=== PATIENT | female | born 1990 | race Caucasian/White ===

== ENCOUNTER 2017-02-23 09:17 | Observation (INO) | payer BC, OTHER ==
[2017-02-23] MEDS ORDERED: THROMBIN (BOVINE) 5,000 UNIT VIAL TP ONE (09:50)
[2017-02-23] MEDS ORDERED: BUPIVACAINE 0.25% 30 ML SDV ONE (09:50)
[2017-02-23] MEDS ORDERED: LR 1,000 ML IV ONE (11:54)
[2017-02-23] MEDS ORDERED: LIDOCAINE 1% 2 ML INJ ONE (12:03)
[2017-02-23] MEDS ORDERED: ceFAZolin 2 GM/SWFI 2 GM/20 ML SYR IVP ONE (12:26)
[2017-02-23] MEDS ORDERED: ALPRAZolam 0.5 MG TAB PO PRN (12:28)
--- NOTE | 2017-02-23 12:29 | PDHPUP ---
History & Physical Update H&P update statement: This history and physical update is based on an assessment of the patient which was completed after admission or registration (within 24 hours), but prior to the surgery/procedure. H&P update: H&P reviewed & patient examined, no change in patient's condition since H&P completed
[2017-02-23] MEDS ORDERED: LR 1,000 ML IV SCH (12:30)
[2017-02-23] MEDS ORDERED: ceFAZolin 2 GM/SWFI 20 ML SYR IVP ONE (12:33)
[2017-02-23 12:52] LABS: PLATELET COUNT 174 10^3/uL (150-400)
--- NOTE | 2017-02-23 12:52 | PDANEPAE ---
ANE History of Present Illness thyroidectomy ANE Past Medical History - Cardiovascular History Hx Hypertension: No Hx Arrhythmias: No Hx Chest Pain: No Hx Coronary Artery / Peripheral Vascular Disease: No Hx CHF / Valvular Disease: No Hx Palpitations: No Cardiovascular History Comment: HEART MURMUR - SINCE - Pulmonary History Hx COPD: No Hx Asthma/Reactive Airway Disease: No Hx Recent Upper Respiratory Infection: No Hx Oxygen in Use at Home: No Hx Sleep Apnea: No Sleep Apnea Screening Result - Last Documented: Negative - Neurologic History Hx Cerebrovascular Accident: No Hx Seizures: No Hx Dementia: No Neurologic History Comment: MIGRAINES IN PAST - Endocrine History Hx Diabetes: Yes Endocrine History Comment: THYROID NODULE - Renal History Hx Renal Disorders: No - Liver History Hx Hepatic Disorders: No - Neurological & Psychiatric Hx Hx Neurological and Psychiatric Disorders: Yes Neurological / Psychiatric History Comment: ANXIETY - Cancer History Hx Cancer: Yes Cancer History Comment: MELANOMA - Congenital Disorder History Hx Congenital Disorders: No - GI History Hx Gastrointestinal Disorders: Yes Gastrointestinal History Comment: GERD - Other Health History Other Health History: NEG - Chronic Pain History Chronic Pain: No - Surgical History Prior Surgeries: MELANOMA SKIN REMOVED. WISDOM TEETH ANE Review of Systems Review of systems is: negative Review of Systems: - Exercise capacity METS (RN): 4 METS ANE Patient History - Allergies Allergies/Adverse Reactions: Sulfa (Sulfonamide Antibiotics) Allergy (Verified 01/23/17 09:57) "makes me really sick" - Home Medications Home medications: home medication list seen and reviewed Home Medications: ALPRAZolam [Xanax 0.5 MG (*)] 0.5 mg PO DAILY PRN 01/23/17 [Last Taken 02/23/16 0.5] Cyanocobalamin [Vitamin B12 (*)] 1,000 mcg PO DAILY 01/23/17 [Last Taken Unknown ] Ibuprofen [Motrin (*)] 200 mg PO DAILY PRN 01/23/17 [Last Taken Unknown] Multivitamins [Multivitamin (*)] 1 each PO DAILY 01/23/17 [Last Taken Unknown] Perry-3 Fatty Acids [Fish Oil 1000 mg (*)] 1,000 mg PO DAILY 01/23/17 [Last Taken Unknown] - NPO status NPO Since - Liquids (Date): 02/23/17 NPO Since - Liquids (Time): 10:00 NPO Since - Solids (Date): 02/23/17 NPO Since - Solids (Time): 07:00 (light meal) - Anes Hx Anes Hx: no prior problems - Smoking Hx Smoking Status: Never smoked - Family Anes Hx Family Anes Hx: none Family Hx Anesthesia Complications: NEG ANE Labs/Vital Signs - Labs Result Diagrams: 02/23/17 12:26 - Vital Signs Blood Pressure: 133/72 Heart Rate: 67 Respiratory Rate: 14 O2 Sat (%): 97 Height: 167.64 cm Weight: 61.235 kg ANE Physical Exam - Airway Neck exam: FROM Mallampati Score: Class 1 - Pulmonary Pulmonary: no respiratory distress - Cardiovascular Cardiovascular: regular rate and rhythym - ASA Status ASA Status: II ANE Anesthesia Plan Anesthesia Plan: general endotracheal anesthesia
[2017-02-23] MEDS ORDERED: MIDAZOLAM 2 MG/2 ML VIAL IVP ONE (13:00)
[2017-02-23] MEDS ORDERED: MIDAZOLAM 2 MG/2 ML VIAL ONE (13:02)
[2017-02-23] MEDS ORDERED: LIDOCAINE 2% 100 MG/5 ML SYR ONE (13:12)
[2017-02-23] MEDS ORDERED: ROCURONIUM 50 MG/5 ML VIAL ONE (13:12)
[2017-02-23] MEDS ORDERED: PROPOFOL 200 MG/20 ML VIAL ONE (13:12)
[2017-02-23] MEDS ORDERED: DEXAMETHASONE 4 MG/ML VIAL ONE (13:12)
[2017-02-23] MEDS ORDERED: ONDANSETRON 4 MG/2 ML VIAL ONE ×2 (13:12→16:07)
[2017-02-23] MEDS ORDERED: fentaNYL 250 MCG/5 ML INJ ONE (13:12)
[2017-02-23] MEDS ORDERED: ACETAMINOPHEN 500 MG TAB PO PRN (14:21)
[2017-02-23] MEDS ORDERED: ALBUTEROL 3 ML DEYVIAL IH PRN (14:21)
[2017-02-23] MEDS ORDERED: NALOXONE HCL 0.4 MG/ML INJ IVP PRN (14:21)
[2017-02-23] MEDS ORDERED: DEXAMETHASONE 4 MG/ML VIAL IVP PRN (14:21)
[2017-02-23] MEDS ORDERED: MEPERIDINE 25 MG/ML SYR IVP PRN (14:21)
[2017-02-23] MEDS ORDERED: HYDROCODONE/APAP 5/325 TAB PO PRN (14:21)
[2017-02-23] MEDS ORDERED: OXYCODONE/APAP 5/325 TAB PO PRN (14:21)
[2017-02-23] MEDS ORDERED: ONDANSETRON 4 MG/2 ML VIAL IVP PRN ×2 (14:21→15:37)
--- NOTE | 2017-02-23 14:58 | POSTANESTH ---
Post Anesthetic Evaluation Cardiovascular Status: Normal, Stable, Similar to Pre-Op Cond Respiratory Status: Normal, Stable, Similar to Pre-op Cond. Level of Consciousness/Mental Status: Can Participate in Eval, Mildly Sleepy, Arousable Pain Control: Adequate, Prn Tx Ordered Nausea/Vomiting Control: Inadeq, Add Tx Reqired Complications Possibly Related to Anesthesia: None Noted
[2017-02-23] MEDS ORDERED: PROMETHAZINE HCL 25 MG/ML INJ ONE (15:36)
[2017-02-23] MEDS: PROMETHAZINE HCL 25 MG/ML INJ IVP PRN ×2 (15:37→15:47)
[2017-02-23] MEDS ORDERED: D5W 1/2 NS W/ 20 KCl/L 1,000 ML IV SCH (15:45)
[2017-02-23] MEDS ORDERED: fentaNYL 100 MCG/2 ML INJ ONE (15:51)
[2017-02-23] MEDS ORDERED: HYDROmorphONE/DILAUDID 1 MG/ML INJ ONE (15:52)
--- NOTE | 2017-02-23 15:53 | POSTOPPROG ---
Post Op Note Date of Operation: 02/23/17 Surgeon: Leonardo Kovacs (, FACS) Scallop Raker: Negin Gutierrez MD Anesthesiologist: Aaron Barr MD Anesthesia: GET(General Endotracheal) Pre-op Diagnosis: right thyroid nodule Post-op Diagnosis: same Procedure: right thyroid lobectomy + isthmusectomy Findings: benign nodules on frozen Inf/Abcess present in the surg proc area at time of surgery?: No Specimen(s): right thyroid lobe and isthmus
[2017-02-23] MEDS: fentaNYL 100 MCG/2 ML INJ IVP PRN ×2 (15:54→16:10)
[2017-02-23] MEDS: HYDROmorphONE/DILAUDID 1 MG/ML INJ IVP PRN ×3 (15:55→16:26)
[2017-02-23] MEDS ORDERED: SCOPOLAMINE HYDROBROMIDE 1 MG/3 DAYS PATCH TD SCH (16:00)
[2017-02-23] MEDS ORDERED: SCOPOLAMINE HYDROBROMIDE 1 MG/3 DAYS PATCH TD ONE (16:08)
[2017-02-23] MEDS: METOCLOPRAMIDE 10 MG/2 ML VIAL IVP SCH ×2 (17:39→23:35)
[2017-02-23] MEDS: OXYCODONE/APAP 5/325 TAB PO PRN (21:05)
[2017-02-23] MEDS: SENNOSIDES/DOCUSATE SODIUM TAB PO SCH (21:05)
[2017-02-24] MEDS: METOCLOPRAMIDE 10 MG/2 ML VIAL IVP SCH (05:24)
--- NOTE | 2017-02-24 06:51 | GOP ---
[f rep st] OPERATIVE REPORT DATE OF OPERATION: SURGEON: Leonardo Kovacs MD, FACS WRAPPER OFF: Negin Gutierrez MD. ANESTHESIA: General endotracheal, Aaorn Barr MD. PREOPERATIVE DIAGNOSIS: Right thyroid nodule x2. POSTOPERATIVE DIAGNOSIS: Right thyroid nodule x2. PROCEDURE PERFORMED: Right thyroid lobectomy and isthmusectomy. FINDINGS: Two nodules within the right lobe of the thyroid. The larger of the 2 appearing to represent a benign follicular nodule. The smaller of the 2 measuring approximately 7 mm. Had some atypical cells but no definitive evidence of malignancy. Final diagnosis is deferred to permanent section. ESTIMATED BLOOD LOSS: 10 mL DESCRIPTION OF PROCEDURE: After informed consent was obtained, the patient was brought to the operating room and placed under general anesthesia via endotracheal tube. The neck was extended, prepped and draped in the usual fashion. Before proceeding, a time-out and identification of patient was performed. The planned incision site was infiltrated with 0.25% Marcaine incised transversely between the heads of the sternocleidomastoid muscle and dissection carried out through the skin and subcutaneous tissues, as well as platysma muscle. Flaps were elevated cephalad and inferiorly using cautery dissection. The strap muscles were mobilized in the midline and a plane of dissection was entered posterior to the strap muscles and anterior to the right lobe of the thyroid. The thyroid contained a 3.5 cm nodule that was somewhat anterior in the superior portion of the gland. This was gently retracted inferiorly exposing the superior pole vessels. These were dissected, hemoclipped and divided with Harmonic scalpel. The middle thyroid vein was taken down with the Harmonic scalpel and the inferior thyroid was mobilized in a similar fashion, mobilizing and dividing the inferior thyroidal vessels as they were encountered. Rotating the gland medially, the laryngeal nerve was identified as it coursed deep to the thyroid at the level of Guillen ligament. The remainder of the thyroid was slowly and carefully dissected. The superior parathyroid gland was identified and preserved in the course of dissection. The inferior parathyroid gland was not identified during the dissection. The ligament of Guillen was released sharply and the remainder of the gland rotated off the trachea medially and divided in the midline including the isthmus with Harmonic Scalpel. Specimen was removed from the field and submitted for permanent section. Hemostasis was secure within the operative field. A small piece of Surgicel was placed over the operative bed and left in place. At this point, we received the results of our frozen section from Dr. Sheikh who felt that the 2 nodules were likely benign with no direct evidence of malignancy. Final diagnosis was deferred to permanent section. Strap muscles were approximated in the midline with 3-0 Monocryl suture. Platysma muscle and subcutaneous tissues were approximated with 3-0 Monocryl suture. Skin was closed with 4-0 Monocryl suture in a subcuticular fashion. Topical Dermabond was applied. Patient was extubated and brought to the recovery room in satisfactory condition. Needle, sponge, and instrument count were correct. COMPLICATIONS: None. /[id number]/MODL MTDD
[2017-02-24] MEDS: OXYCODONE/APAP 5/325 TAB PO PRN (07:12)
[2017-02-24] MEDS: SENNOSIDES/DOCUSATE SODIUM TAB PO SCH (07:12)
[2017-02-24 07:21] VITALS: BP 87/44; PULSE 55; RESP 16; TEMP 97.7; O2SAT 93
--- NOTE | 2017-02-24 08:34 | PDDCSUM ---
Discharge Summary Discharge Summary: #[id number] S MD Fermín, FACS
--- NOTE | 2017-02-24 09:11 | GDS ---
[f rep st] DISCHARGE SUMMARY DISCHARGE DIAGNOSES: 1. Right thyroid nodule. 2. History of melanoma. 3. Raina-operative anxiety. 4. Postoperative nausea and vomiting. PROCEDURES PERFORMED: 02/23/2017, right hemithyroidectomy and isthmusectomy. HOSPITAL COURSE: For details of admission history and physical please see dictated summary. Briefly, the patient is a 26-year-old female with an enlarging right thyroid nodule. Fine-needle aspiration showed follicular histology with low suspicion for malignancy. She had a 2nd smaller nodule that was not aspirated and showed possible calcifications. She elected to proceed with right hemithyroidectomy. This was performed under general anesthesia. Following surgery, she had severe nausea in the recovery room, requiring Phenergan, Raglan, Zofran and Decadron, but continued to have nausea and vomited into the night. The patient required intravenous fluids. The following morning her nausea had resolved and she had very little pain. At time of discharge, her incision was healing well without sign of infection. Her voice was normal. Intraoperative pathology revealed a benign follicular nodule and some areas of atypia within the smaller nodule but no overt evidence of malignancy. Pathology deferred to permanent section. The patient was discharged home. Had prescriptions at home for Percocet and Senokot. I gave her an additional prescription for Zofran 4 mg p.o. q.4 hours p.r.n. nausea. She will resume her previous medications including p.r.n. Xanax, ibuprofen, omega-3 fatty acids, vitamin B12 and multivitamins. /[id number]/MODL MTDD
--- NOTE | 2017-02-24 18:00 | ASDISCHSUM ---
Discharge Information Plan Status:Home with No Needs Medically Cleared to Leave: Discharge Date:02/24/2017 09:15 AM CM D/C Disposition:Home, Routine, Self-Care ADT D/C Disposition:Home, Routine, Self-Care Projected Discharge Date:02/24/2017 09:15 AM Transportation at D/C: Discharge Delay Reason: Follow-Up Date:02/24/2017 09:15 AM Discharge Slot: Final Diagnosis: Placement Information Patient Contact Information Contact Name:ASHUTOSH Relationship:Other Address: Work Phone: City: [facility] Phone: State/Zip Code: Email: Financial Information Financial Class:HMO and PPO Plans Primary Plan Desc: OUT OF STATE PPO Primary Plan Number:[id number] Secondary Plan Desc: Secondary Plan Number: Assessment Information Intervention Information
[2017-02-26] MEDS ORDERED: PATCH REMOVAL 1 EA PATCH TD SCH (15:47)
== END 2017-02-24 09:15 | disposition home or self-care (01) ==
LOC: F3E 11:33
PROVIDERS: ADMIT Surgery; ATTEND Surgery
PROC: 0GBH0ZX Excision of Right Thyroid Gland Lobe, Open Approach, Diagnostic (ICD-10-PCS; principal; 2017-02-23 13:00)
DX: E04.2 Nontoxic multinodular goiter (principal); K91.89 Other postprocedural complications and disorders of digestive system; R11.2 Nausea with vomiting, unspecified; F41.9 Anxiety disorder, unspecified; K21.9 Gastro-esophageal reflux disease without esophagitis; Z85.820 Personal history of malignant melanoma of skin
CPT/HCPCS: 60210; G0378; J0690; J1100; J1170; J2001; J2250; J2405; J2550; J2704; J2765; J3010